=== PATIENT | male | born 1940 | race Caucasian/White ===

== ENCOUNTER 2022-10-30 08:47 | Outpatient (CLI) | payer MEDICARE, SELFPAY ==
--- NOTE | 2022-10-30 09:25 | XR_ITS ---
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 No fracture or dislocation. No joint effusion. S oft tissues are unremarkable. XR/XR knee LT 3V* [id number] IMPRESSION: 1. Mild tricompartmental DJD.
--- NOTE | 2022-10-30 09:25 | XR_ITS ---
WS: [id number] Exam: XR knee RT 3V* [id number] Date/Time of Exam: 10/30/2022 9:28 AM Reason For Exam: BILATERAL KNEE PAIN There is moderate tricompartmental DJD most severe involving the medial joint compartment. No fractur e noted. No significant joint effusion. Spurring of the posterior patella. A 5 mm x 1 mm metallic sof t tissue foreign body in the posterior soft tissues along the lower femur. XR/XR knee RT 3V* [id number] IMPRESSION: 1. Moderate tricompartmental DJD most severe involving the medial joint compart ment with significant narrowing.
== END 2022-10-30 08:48 | disposition home or self-care (01) ==
PROVIDERS: PCP Internal Medicine; Visit Provider Nurse Practitioner Family
DX: M17.0 Bilateral primary osteoarthritis of knee (principal)
CPT/HCPCS: 73562

== ENCOUNTER → 2022-11-13 12:45 | Outpatient (BNVA) | payer MEDICARE, SELFPAY | PROVIDERS: PCP Internal Medicine; Referring Provider Nurse Practitioner Family; Visit Provider Student in an Organized Health Care Education/Training Program | DX: M17.0 Bilateral primary osteoarthritis of knee (principal) | CPT/HCPCS: 20610; 99204; J1040 ==

== ENCOUNTER → 2023-02-19 10:47 | Outpatient (BNVA) | payer MEDICARE, SELFPAY | PROVIDERS: PCP Internal Medicine; Visit Provider Student in an Organized Health Care Education/Training Program | DX: M17.0 Bilateral primary osteoarthritis of knee (principal) | CPT/HCPCS: 20610; 73560; 73565; 99213; J3301 ==

== ENCOUNTER → 2023-06-21 14:19 | Outpatient (BNVA) | payer MEDICARE, SELFPAY | PROVIDERS: PCP Internal Medicine; Visit Provider Student in an Organized Health Care Education/Training Program | DX: M17.0 Bilateral primary osteoarthritis of knee; Z71.89 Other specified counseling | CPT/HCPCS: 20610; 99213; J3301 ==

== ENCOUNTER → 2023-10-26 09:53 | Outpatient (BNVA) | payer MEDICARE, SELFPAY | PROVIDERS: PCP Internal Medicine; Visit Provider Student in an Organized Health Care Education/Training Program | DX: Z71.89 Other specified counseling; M17.0 Bilateral primary osteoarthritis of knee | CPT/HCPCS: 20610; 99213; J3301 ==

== ENCOUNTER → 2024-02-29 10:01 | Outpatient (BNVA) | payer MEDICARE, SELFPAY | PROVIDERS: PCP Internal Medicine; Visit Provider Student in an Organized Health Care Education/Training Program | DX: Z71.89 Other specified counseling (principal); M17.0 Bilateral primary osteoarthritis of knee | CPT/HCPCS: 20610; 99213; J3301 ==

== ENCOUNTER → 2024-07-04 09:59 | Outpatient (BNVA) | payer MEDICARE, SELFPAY | PROVIDERS: PCP Internal Medicine; Visit Provider Student in an Organized Health Care Education/Training Program | DX: Z71.89 Other specified counseling (principal); M17.0 Bilateral primary osteoarthritis of knee | CPT/HCPCS: 20610; 99213; J3301 ==

== ENCOUNTER 2024-09-13 16:03 | Outpatient (CLI) | payer MEDICARE, SELFPAY ==
--- NOTE | 2024-09-13 16:08 | US_ITS ---
WS: [id number] URINARY BLADDER ULTRASOUND HISTORY: UNSPECIFIED DISORDER OF BLADDER COMPARISON: None available. Urinary bladder is well distended. No intraluminal filling defect. No free fluid adjacent to the urin minoo bladder. No focal asymmetry or bladder wall thickening or mass. Prostate gland is enlarged and heterogeneous w ith mild encroachment into the bladder. Bladder Prevoid: 5.7 cm x 6.3 cm x 6.3 cm. Prevoid volume: 120.2 ml. Patient was unable to void. Post void volume is the same as the prevoid volume. US/US bladder [id number] IMPRESSION: 1. No intraluminal urinary bladder mass. 2. Minimal distention of the urinary bladder. Patient was unable to void to ob tain post void volume.
== END 2024-09-13 16:04 | disposition home or self-care (01) ==
LOC: RAD 16:08
PROVIDERS: PCP Internal Medicine; Visit Provider Nurse Practitioner Family
DX: N32.9 Bladder disorder, unspecified (principal); R39.11 Hesitancy of micturition
CPT/HCPCS: 76857

== ENCOUNTER 2024-09-14 09:20 | Outpatient (CLI) | payer MEDICARE, SELFPAY ==
[2024-09-14 09:44] LABS: Bilirubin Urine Negative (Negative); Blood Urine Negative (Negative); Glucose Urine UA Negative (Normal); Ketones Urine Trace (Negative); Leukocyte Esterase Urine Negative (Negative); Nitrate Urine Negative (Negative); Protein Urine Trace (Negative); Urine Appearance Clear (CLEAR); Urine Color Dark Yellow (Yellow)
[2024-09-14 09:50] LABS: Add Urine Microscopic? YES; Bacteria Urine None Seen /hpf; Hyaline Casts Urine 4.11 /lpf; Squamous Epithelial Cell Urine 0-5 /hpf (0-5); WBC Urine 0-5 /hpf (0-5)
[2024-09-14 10:14] LABS: Add Urine Culture? No; UA Slide Review UA Slide Review Perf
[2024-09-14 10:15] LABS: Calcium Oxalate Crystals Urine 15-25 /hpf; Mucus Urine 2+ /hpf
== END 2024-09-14 09:21 | disposition home or self-care (01) ==
LOC: LAB 09:24
PROVIDERS: PCP Internal Medicine; Visit Provider Nurse Practitioner Family
DX: R39.11 Hesitancy of micturition (principal); N32.9 Bladder disorder, unspecified
CPT/HCPCS: 81001

== ENCOUNTER → 2024-10-31 14:33 | Outpatient (BNVA) | payer MEDICARE, SELFPAY | PROVIDERS: PCP Internal Medicine; Visit Provider Student in an Organized Health Care Education/Training Program | DX: Z71.89 Other specified counseling (principal); M17.0 Bilateral primary osteoarthritis of knee | CPT/HCPCS: 20610; 99213; J3301 ==

== ENCOUNTER → 2025-02-27 14:20 | Outpatient (BNVA) | payer MEDICARE, SELFPAY | PROVIDERS: PCP Internal Medicine; Visit Provider Student in an Organized Health Care Education/Training Program | DX: M17.0 Bilateral primary osteoarthritis of knee (principal) | CPT/HCPCS: 20610; 99213; J3301; J9999 ==

== ENCOUNTER → 2025-07-03 13:29 | Outpatient (BNVA) | payer MEDICARE, SELFPAY | PROVIDERS: PCP Internal Medicine; Visit Provider Student in an Organized Health Care Education/Training Program | DX: M17.0 Bilateral primary osteoarthritis of knee (principal) | CPT/HCPCS: 20610; 99213; J3301; J9999 ==